=== PATIENT | female | born 1975 | race Caucasian/White ===

== ENCOUNTER 2016-10-12 01:12 | Emergency (ER) | payer OTHER ==
[~2016-10-12 01:12] MED LIST: ACETAMINOPHEN PO; ACID RELUX MED; ADVIL100 MG; ALBUTEROL17 GM INH; AMBIEN5 MG PO; ATIVAN1 MG PO; BACTRIM DS TABL1 TAB; CIPRO500 MG; CLEOCIN HCL300 M1 PO; GLUCOSE PO; HYDROCODONE PO; LEVAQUIN500 MG PO; NO HOME MEDS; NO MEDS; NORCO 10/325 TA1 TAB PO; NORCO 5/325 TAB1 TAB; NORCO 5/325 TAB1 TAB PO; PERCOCET 5/3251 TAB PO; PHENERGAN12.5 MG PO; PHENERGAN25 MG PO; PHENTERMINE H37.5 M2 PO; PREDNISONE5 MG PO; PROTONIX40 MG PO; TAMIFLU75 MG PO; TOPAMAX25 M1 PO; TYLENOL325 MG PO; VITAMIN D1000 UNIT PO; WELLBUTRIN XL300 M2 PO; ZEGERID 20 MG C1 CAP PO; ZOFRAN ODT4 MG/UDTAB PO; ZOFRAN4 MG PO; ZOLOFT25 MG PO; ZYVOX600 MG; [UNRECOGNIZED DRUG - OTHER]
[2016-10-12] MEDS ORDERED: NO HOME MEDICATION XX (01:35)
[2016-10-12] MEDS ORDERED: PERCOCET 5-3251 EACH PO (03:07)
[2016-10-12] MEDS ORDERED: VALIUM2 M1 PO (03:07)
== END 2016-10-12 03:06 ==
LOC: EDMED 01:12
DX: S46.812A Strain of other muscles, fascia and tendons at shoulder and upper arm level, left arm, initial encounter (principal); M43.6 Torticollis; E11.9 Type 2 diabetes mellitus without complications; Z90.49 Acquired absence of other specified parts of digestive tract; Z90.89 Acquired absence of other organs; Z90.710 Acquired absence of both cervix and uterus; Z98.890 Other specified postprocedural states; X58.XXXA Exposure to other specified factors, initial encounter
CPT/HCPCS: J1170; J1885